=== PATIENT | female | born 1985 | race Caucasian/White ===

== ENCOUNTER 2024-11-16 15:49 | Outpatient (CLI) | payer OTHER, SELFPAY ==
--- NOTE | ~2024-11-16 | MM_ITS ---
MM SCREENING [facility] CLAUDE INDICATION: Asymptomatic, referred for screening mammogram COMPARISON: Baseline TECHNIQUE: Full field digital CC, MLO views of Both breasts were obtained with computer-aided detect ion to assist in interpretation of the study. FINDINGS: There are scattered areas of fibroglandular density. There is a focal asymmetry in the inferior medial left breast at middle depth. No other focal dominant mass, architectural distortion, or suspicious microcalcifications identified. IMPRESSION: 1. Left breast Focal asymmetry. 2. No evidence of malignancy in the Right breast. RECOMMENDATION: Left breast Diagnostic mammogram with true lateral, appropriate spot compression views and an ultraso und if needed. BI-RADS 0, INCOMPLETE, NEEDS ADDITIONAL IMAGING EVALUATION Reviewed, dictated and finalized at location B. IMPRESSION: 1. Left breast Focal asymmetry. 2. No evidence of malignancy in the Right breast. RECOMMENDATION: Left breast Diagnostic mammogram with true lateral, appropriate spot compressio n views and an ultrasound if needed. BI-RADS 0, INCOMPLETE, NEEDS ADDITIONAL IMAGING EVALUATION
--- OUTSIDE RECORDS SUMMARY | 2024-11-16 15:54 | XMS_ITS | Referral Summary ---
Author Organization [facility] Address [address] [place] [address] Care Team Providers Care Director Summer Sessions Name Role Phone Carlie Fontaine MD Primary Care Provider Allergies No known active allergies Medications montelukast (SINGULAIR) 10 mg tablet Take 1 tablet (10 mg total) by mouth nightly at bedtime 3 Active albuterol HFA (PROVENTIL HFA,VENTOLIN HFA,PROAIR HFA) 90 mcg/actuation inhaler INHALE 1 PUFF BY MOUTH EVERY 4 HOURS NEEDED FOR SHORTNESS OF BREATH OR WHEEZING 2 Active Advair HFA 45-21 mcg/actuation inhaler Inhale 2 puffs 2 (two) times a day 2 Active Active Problems No known active problems Social History Tobacco Use Types Packs/Day Years Used Date Smoking Tobacco: Never Assessed Comments Unknown Sex and Gender Information Value Date Recorded Sex Assigned at Not on file Legal Sex Female 10:46 AM CDT Gender Identity Not on file Sexual Orientation Not on file Last Filed Vital Signs Vital Sign Reading Time Taken Comments Blood Pressure 120/72 10/22/2023 2:03 PM CDT Pulse 64 10/22/2023 2:03 PM CDT Temperature 36.6 C (97.9 F) 10/22/2023 2:03 PM CDT Respiratory Rate 20 10/22/2023 2:03 PM CDT Oxygen Saturation 99% 10/22/2023 2:03 PM CDT Inhaled Oxygen Concentration - - Weight 87.1 kg (192 lb) 10/22/2023 2:03 PM CDT Height 170.2 cm (5' 7) 10/22/2023 2:03 PM CDT Body Mass Index 30.07 10/22/2023 2:03 PM CDT Plan of Treatment Not on file Insurance [facility] Member Subscriber Plan / Payer ( fective 2023-Present) Name:Dorene Sanchezine Relation to Subscriber:Self Name:Dorene Sanchezherine Payer ID:[id number] (NAIC) Type:[facility] Address: [place] [id number] Care Teams Director Summer Sessions Relationship Specialty Start Date End Date Carlie Fontaine MD [address] [place] [address] PCP - General Family Medicine 07/18/22
--- OUTSIDE RECORDS SUMMARY | 2024-11-16 15:54 | XMS_ITS | Clinical Summary ---
Author Organization [facility] Address [address] [place] [address] Care Team Providers Care Photovoltaic Installation Technician Name Role Phone Carlie Fontaine MD Primary [...] on file Sexual Orientation Not on file Obstetrics History Last Filed Vital Signs Vital Sign Reading [...] 10/22/2023 2:03 PM CDT Plan of Treatment Health Maintenance Due Date Last Done Comments Breast Cancer Screening-Mammogram 1983 Cervical Cancer Screening 1983 Depression Screening 1983 Hepatitis C Screening 1983 Varicella Vaccines (1 of 2 - 13+ 2-dose series) 01/02/1996 Hepatitis B Screening 2001 Regular Well Visit/Exam 18-64 2001 DTaP/Tdap/Td Vaccine (2 - Td or Tdap) 2024 12/31/2013 Covid-19 Vaccine ( season) 2024 05/25/2022, 05/03/2021, 08/17/2020, Additional history exists Influenza Vaccine (Season Ended) 2025 05/25/2022, 04/04/2021, 03/29/2020, Additional history exists HPV Vaccines Aged Out No longer eligi ble based on patient's age to complete this topic Pneumococcal vaccine <65 Aged Out No longer eligible based on patient's age to complete this topic Insurance [facility] H[facility]/PPO Address: [facility] [address] [place] [address] [facility] H[facility]/PPO Address: [place] [address] Care Teams Photovoltaic Installation Technician Relationship Specialty Start Date End Date Carlie Fontaine MD [address] [facility] [address] [place] [address] PCP - General Family Medicine 07/18/22
--- OUTSIDE RECORDS SUMMARY | 2024-11-16 15:54 | XMS_ITS | Clinical Summary ---
Author Organization [facility] Address [address] [address] Care Team Providers Care Xerox Machine Operator Name Role Phone Kory Berkowitz MD Primary Care Provider [phone] Source Comments [facility],non-owned Affiliates and Associated Physician Practices is amultiple site organization consisting of ambulatory clinics and hospital sitesin [place], [place], [place] and [place]. This disclosure is being madepursuant to the Care Everywhere program and may not contain all information available regarding this patient. Last updated 18.[facility] Allergies No known active allergies Medications * Be aware that medications may not be up to date on this document. Alwaysverify current medications with the patient. Loratadine (CLARITIN PO) Active Triamcinolone Acetonide (NASACORT ALLERGY 24HR NA) [place] into the nose as needed Active Social History Tobacco Use Types Packs/Day Years Used Date Smoking Tobacco: Never Smokeless Tobacco: Never Comments No Sex and Gender Information Value Date Recorded Sex Assigned at Not on file Legal Sex Female 10:21 AM CDT Gender Identity Not on file Sexual Orientation Not on file Last Filed Vital Signs Vital Sign Reading Time Taken Comments Blood Pressure 118/80 02/08/2019 12:48 PM CDT Pulse 83 02/08/2019 12:48 PM CDT Temperature 36.8 C (98.3 F) 02/08/2019 12:48 PM CDT Respiratory Rate 16 02/08/2019 12:48 PM CDT Oxygen Saturation 100% 02/08/2019 12:48 PM CDT Inhaled Oxygen Concentration - - Weight 81.6 kg (180 lb) 02/08/2019 12:48 PM CDT Height 170.2 cm (5' 7) 02/08/2019 12:48 PM CDT Body Mass Index 28.19 02/08/2019 12:48 PM CDT Plan of Treatment Health Maintenance Due Date Last Done Comments LIPID TESTING 1983 MAMMOGRAM 1983 HIV SCREENING 1998 HEPATITIS C SCREENING 12/27/2000 DTAP/TDAP/TD VACCINES (1 - Tdap) 2002 HEPATITIS B VACCINE (1 of 3 - 19+ 3-dose series) 2002 COVID-19 VACCINE (1 - 2023-2 5 season) 2024 DEPRESSION SCREENING 06/17/2024 INFLUENZA VACCINE (Season Ended) 2025 ZOSTER VACCINE (1 of 2) 2033 HIB VACCINE Aged Out No longer eligi ble based on patient's age to complete this topic HPV VACCINE Aged Out No longer eligi ble based on patient's age to complete this topic MENINGOCOCCAL (Group B) VACC INE SHARED DECISION-MAKING Aged Out No longer eligibl e based on patient's age to complete this topic MENINGOCOCCAL GROUPS A/C/Y/W VACCINE Aged Out No longer eligible b ased on patient's age to complete this topic PNEUMOCOCCAL VACCINE Aged Out No long er eligible based on patient's age to complete this topic Insurance [facility] Care Teams Xerox Machine Operator Relationship Specialty Start Date End Date Kory Berkowitz MD [address] [id number] PCP - General Family Medicine 11/01/16
== END 2024-11-16 15:50 | disposition home or self-care (01) ==
PROVIDERS: PCP Family Medicine; Visit Provider Physician Assistant
DX: Z12.31 Encounter for screening mammogram for malignant neoplasm of breast (principal); R92.8 Other abnormal and inconclusive findings on diagnostic imaging of breast
CPT/HCPCS: 77063; 77067

== ENCOUNTER 2024-12-09 10:57 | Outpatient (CLI) | payer OTHER, SELFPAY ==
--- NOTE | ~2024-12-09 | MMUS_ITS ---
EXAMINATION: MM diagnostic shiela LT w nurys, US breast LT limited HISTORY: Left breast asymmetry TECHNIQUE: Additional 3-D tomosynthesis images of the left breast were performed and synthetic 2-D im ages were generated. CAD analysis was submitted and interpreted. High resolution limited left breast ultrasound was performed. COMPARISON: 11/16/2024 BREAST PARENCHYMAL COMPOSITION:Not Dense. There are scattered areas of fibroglandular density. FINDINGS: MAMMOGRAPHIC FINDINGS: Spot compression views demonstrate a persistent circumscribed 4 mm mass at the lower, inner left mandi st. ULTRASOUND: At the 9:00 position left breast, 4 cm from the nipple, there is a 2 mm probable small cyst. IMPRESSION: Findings compatible with tiny subcentimeter cyst at the lower, inner left breast, as detailed above. No findings which are suspicious for malignancy. BI-RADS Category 2: Benign finding(s). Reviewed, dictated and finalized at [facility]. IMPRESSION: Findings compatible with tiny subcentimeter cyst at the lower, inner left mandi st, as detailed above. No findings which are suspicious for malignancy. BI-RADS Category 2: Benign finding(s).
== END 2024-12-09 10:58 | disposition home or self-care (01) ==
LOC: ANHIMG 11:05
PROVIDERS: PCP Family Medicine; Visit Provider Student in an Organized Health Care Education/Training Program
DX: R92.8 Other abnormal and inconclusive findings on diagnostic imaging of breast (principal); N60.02 Solitary cyst of left breast
CPT/HCPCS: 76642; 77061; 77065; G0279